=== PATIENT | male | born 1960 | race Caucasian/White ===

== ENCOUNTER 2017-04-04 14:00 | Emergency (ER) | payer OTHER ==
[~2017-04-04] VITALS: Ht 193 cm; Wt 104.3 kg
[~2017-04-04 14:00] MED LIST: ADVAIR 500/501 EA INH; ALDACTONE25 MG PO; ALDACTONE50 M1 PO; AMLODIPINE BESYL5 MG PO; ATENOLOL50 MG PO; ATIVAN1 MG PO; B-COMPLEX-501 CAP PO; BACLOFEN20 M1 PO; CORGARD80 MG PO; COZAAR50 M1 PO; COZAAR50 MG PO; FOLIC ACID1 MG PO; GABAPENTIN600 MG PO; HABITROL14 MG/24 H TD; HYDROCODONE BIT1 T11 PO; HYDROXYZINE PAM50 MG PO; LEVOFLOXACIN500 MG PO; LIPITOR20 MG PO; LOSARTAN POTASS50 M1 PO; MOBIC15 MG PO; NORCO 325 MG-101 TAB PO; NORFLEX100 MG PO; ONDANSETRON4 MG PO; OXYCODONE AND A1 TA3 PO; OXYCODONE HYDRO10 M2 PO; OXYCODONE5 M1 PO; POLLY-VITES1 CTB PO; POLYETHYLENE G500 GM MC; PREDNICOT20 MG PO; PRILOSEC20 M1 PO; PROTONIX40 MG PO; SERTRALINE HYDR50 MG PO; SPIRIVA18 MCG PO; Septra Ds 800 M1 TAB PO; TEMAZEPAM30 MG PO; THERA1 TAB PO; THIAMINE100 MG PO; TRAZADONE HYDR100 MG PO; TRAZODONE150 MG PO; VENTOLIN 02.5 MG/3 M INH; VITA-BEE WITH1 EACH PO; VITAMIN B-11 TAB PO; VITAMIN B121000 MC1 PO; VITAMIN E400 IU PO; VITAMIN E400 UNI2 PO; ZOLOFT25 MG PO; [UNRECOGNIZED DRUG - OTHER] PO
[2017-04-04] MEDS ORDERED: MEDROL DOSEPAK4 MG PO (15:21)
== END 2017-04-04 15:50 | disposition home or self-care (01) ==
LOC: ED 14:00
DX: M54.5 Low back pain (principal); M25.551 Pain in right hip; R20.0 Anesthesia of skin; F17.200 Nicotine dependence, unspecified, uncomplicated; Z79.899 Other long term (current) drug therapy